=== PATIENT | female | born 2000 | race Native Hawaiian/Other Pacific Islander ===

== ENCOUNTER → 2025-02-04 13:55 | Outpatient (CLI) | payer OTHER, SELFPAY ==
--- NOTE | 2025-02-04 13:58 | DI.US.S_ITS ---
PROCEDURE: US OB LIMITED INDICATIONS: GROWTH/DATING VERIFICATION. ?ANATOMY OUTSIDE/PRIOR DATING DATA: The calculations are made using the DAVIDA of 07/11/2025. TECHNIQUE: Real-time scanning was performed of the fetus, with image documentation and biometric measurements. Endovaginal scanning: Not performed COMPARISON: None. FINDINGS: General: A single living intrauterine gestation is present. Presentation: Variable. Placenta: Placental position is anterior , without previa. Amniotic fluid index: 11.4 cm, normal range is 5-24 cm. Single deepest vertical pocket is 4.0 cm. heart rate: 152 beats per minute. Maternal cervical canal: 5.3 cm long. Normal lower limit is 2.5 cm. biometrics: Biparietal diameter: 4.2 cm, 18 weeks 4 days Head circumference: 15.4 cm, 18 weeks 3 days Abdominal circumference: 13.4 cm, 18 weeks 6 days Femur length: 2.5 cm, 17 weeks 4 days Clinically estimated gestational age: 17 weeks 4 days Composite gestational age from present scan: 18 weeks 3 days Estimated weight and percentile: 232 g, 86 percentile Other: Anatomy not performed due to early gestational age. Incidental note of right choroid plexus cyst measuring 6 mm. . IMPRESSION: 1. Single live intrauterine consistent with 18 weeks and 3 days. 2. Estimated weight is in the 86th percentile. 3. Anatomy not performed due to early gestational age. Incidental note of right choroid plexus cyst measuring 6 mm. Recommend follow-up ultrasound at 20 weeks gestational age with complete anatomy scan. We strive to produce accurate, complete, and clear reports of imaging services. To assist us in improving patient care, this report was composed using standard report templates and voice recognition software. Therefore, it may contain abnormal punctuation, insertions and/or omissions. Occasional wrong-word or sound-alike substitutions may occur. Though we review the report and make efforts to correct it, we do recommend that the report be read carefully in proper context to recognize any text inaccuracies. Dictated by: eDmario Shane M.D. on 02/04/2025 at 18:11 Approved by: Demario Shane M.D. on 02/04/2025 at 18:14
[2025-02-04 15:56] LABS: Add Manual Diff / Slide Review NO; Basophils Absolute Auto 100 /uL (0-100); Basophils Percent Auto 0.4 % (0-2); Eosinophils Absolute Auto 200 /uL (0-450); Eosinophils Percent Auto 1.5 % (2-4); Hematocrit 42.1 % (36-46); Hemoglobin 13.9 g/dL (12.0-16.0); Lymphocytes Absolute Auto 3100 /uL (1100-4500); Lymphocytes Percent Auto 20.9 % (25-40); Mean Corpuscular Hemoglobin 29.1 PG (26-34); Mean Corpuscular Volume 88.2 fL (80-100); Monocytes Absolute Auto 1000 /uL (0-900); Monocytes Percent Auto 6.4 % (3-14); Neutrophils Absolute Auto 10500 /uL (1500-7000); Neutrophils Percent Auto 70.8 % (50-75); Platelet Count 313 X10^3/uL (150-400); Red Blood Cell Count 4.78 X10^6/uL (4.0-5.2); Red Cell Distribution Width 13.3 % (11.6-14.8); White Blood Cell Count 14.9 X10^3/uL (4.5-11.0)
[2025-02-04 16:02] LABS: Hemoglobin A1C% w Est Avg Glu 5.3 % (4.0-6.0)
[2025-02-04 16:09] LABS: Natera Collection Specimen Collected
[2025-02-04 16:17] LABS: Alanine Aminotransferase 17 IU/L (<35); Albumin 4.2 g/dL (3.5-5.0); Albumin Globulin Ratio 1.2 (1.0-2.8); Alkaline Phosphatase 66 U/L (38-126); Aspartate Aminotransferase 23 IU/L (14-36); BUN Creatinine Ratio 9.8 (6-22); Bilirubin Total 0.3 mg/dL (0.2-1.3); Blood Urea Nitrogen 5 mg/dL (7-17); Calcium 9.2 mg/dL (8.4-10.2); Carbon Dioxide 20 mmol/L (22-32); Chloride 108 mmol/L (98-107); Estimated Glomerular Filt Rate > 60 mL/min (>60); Globulin 3.5 g/dL (1.7-4.1); Glucose 95 mg/dL (70-99); HEMOLYSIS < 15 (0-50); Potassium 3.9 mmol/L (3.4-5.1); Sodium 137 mmol/L (137-145); Total Protein 7.7 g/dL (6.3-8.2)
[2025-02-04 16:50] LABS: Hepatitis B Surface Antigen NEGATIVE s/c (NEGATIVE); Rubella Antibody IgG 2.6 IU/mL (>15)
[2025-02-04 17:06] LABS: HIV 1 & 2 Ab/Ag 4th Gen Combo NEGATIVE (NEGATIVE); Hep C Virus Ab w/Reflex Quant NEGATIVE s/c (NEGATIVE)
[2025-02-04 18:02] LABS: Creatinine Urine Random 79.88 mg/dL; Protein (Total) Urine Random < 5 mg/dL (0-12); Protein Creatinine Ratio Urine 0.06 GRAM/24H
[2025-02-04 19:21] LABS: Urine N gonorrhoeae NOT DETECTED
[2025-02-04 19:22] LABS: Urine Chlamydia NOT DETECTED
[2025-02-06 05:09] LABS: RPR Screen Non Reactive (Non Reactive)
[2025-02-06 05:42] LABS: Varicella IgG Antibody Reactive (Non Reactive)
== END ==
PROVIDERS: Referring Provider Obstetrics & Gynecology; Visit Provider Obstetrics & Gynecology
DX: O99.212 Obesity complicating pregnancy, second trimester (principal); Z3A.18 18 weeks gestation of pregnancy
CPT/HCPCS: 36415; 76815; 80053; 80055; 82570; 83036; 84156; 86787; 86803; 86850; 86900; 86901; 87086; 87389; 87491; 87591

== ENCOUNTER → 2025-02-26 07:58 | Outpatient (CLI) | payer OTHER, SELFPAY ==
--- NOTE | 2025-02-26 07:59 | DI.US.S_ITS ---
PROCEDURE: US OB >= 14 WEEKS FETUS INDICATIONS: 20 wk anatomy OUTSIDE/PRIOR DATING DATA: Working DAVIDA is 07/11/2025 TECHNIQUE: Real-time scanning was performed of the fetus, with image documentation and biometric measurements. Endovaginal scanning: No COMPARISON: [facility], , OB LIMITED, 02/04/2025, 16:29. FINDINGS: General: A single living intrauterine gestation is present. Presentation: Vertex. Placenta: Placental position is anterior , without previa. Amniotic fluid index: 15.1 cm, normal range is 5-24 cm. Single deepest vertical pocket is 5.2 cm. heart rate: 163 beats per minute. Maternal cervical canal: 3.6 cm long. Normal lower limit is 2.5 cm. biometrics: Biparietal diameter: 5.2 cm, 21 weeks and 6 days Head circumference: 19.1 cm, 21 weeks and 2 days Abdominal circumference: 17.6 cm, 22 weeks and 3 days Femur length: 3.3 cm, 20 weeks and 3 days Clinically estimated gestational age: 20 weeks and 5 days Composite gestational age from present scan: 21 weeks and 4 days Estimated weight and percentile: 4 in 32 g, 87% Anatomic survey: Neuro: Ventricles are non-dilated at less than 10 mm. Cisterna magna is normal at 3-11 mm. Cerebellum is normal in size and morphology. No choroid plexus cyst seen today. Nuchal skin fold: Normal at less than 6 mm between 14-21 weeks gestational age. Face: Nose and lips, facial profile are normal. Spine: No evidence for spina bifida. Heart: 4-chambered heart is present. LVOT seen. RVOT not well seen Diaphragm: Diaphragm is intact. Stomach: Left-sided stomach is present. Echogenic focus is seen. Kidneys: No hydronephrosis. Normal is less than 5 mm in 2nd trimester, less than 7 mm in 3rd trimester. Cord: 3-vessel cord has orthotopic insertion. Bladder: Normal in size. Extremities: All 4 extremities identified. IMPRESSION: Living intrauterine gestation in vertex presentation. EFW at the 87 percentile, upper limit of normal. Normal ANA. Incidentally noted echogenic focus in the stomach, nonspecific and of questionable significance in the absence of other significant abnormalities. RVOT was not well seen. No choroid plexus cysts seen today. Consider short interval follow-up. Dictated by: Zaki Cox M.D. on 02/26/2025 at 15:49 Approved by: Zaki Cox M.D. on 02/26/2025 at 15:53
[2025-02-26 12:36] LABS: GTT (PREG) 1 Hour PP 50gm Dose 154 mg/dL (76-139)
[2025-02-28 19:36] LABS: AFP Value 52.1 ng/mL (.); Gest Age on Col Date 20.7 weeks (.); Gestational Age Ultrasound (.); Insulin Dep Diabetes No (.); OSBR Risk 1IN 9540 (.); Results Report (.); Test Results *Screen Negative* (.)
== END ==
PROVIDERS: Referring Provider Obstetrics & Gynecology; Visit Provider Obstetrics & Gynecology
DX: Z34.02 Encounter for supervision of normal first pregnancy, second trimester (principal); Z3A.20 20 weeks gestation of pregnancy
CPT/HCPCS: 36415; 76811; 82105; 82950

== ENCOUNTER → 2025-04-10 09:03 | Outpatient (CLI) | payer OTHER, SELFPAY ==
[2025-04-10 10:12] LABS: Glucose Fasting Gestational 105 mg/dL (76-95)
[2025-04-10 11:38] LABS: Glucose 1 Hour Gest 226 mg/dL (76-180)
[2025-04-10 12:09] LABS: Glucose 2 Hour Gest 173 mg/dL (76-155)
[2025-04-10 12:20] LABS: Glucose Tol Interp,Gestational INTERPRETATION
[2025-04-10 13:32] LABS: Glucose 3 Hour Gest 168 mg/dL (76-140)
== END ==
PROVIDERS: Referring Provider Obstetrics & Gynecology; Visit Provider Obstetrics & Gynecology
DX: R73.09 Other abnormal glucose (principal)
CPT/HCPCS: 36415; 82951; 82952

== ENCOUNTER → 2025-04-23 12:18 | Outpatient (CLI) | payer OTHER, SELFPAY ==
--- NOTE | 2025-04-23 12:28 | DIAB.GDA ---
Addendum entered by Ginny Mcgowan 05/02/25 17:46: 05/02/25: No message from pt on update on FBG. Called and left a vm to send over BG results at her earliest convenience. 1:1 follow-up in 6 days is scheduled. Addendum entered by Ginny Mcgowan 04/29/25 15:36: Rescheduled for next week follow-up as well Addendum entered by Ginny Mcgowan 04/29/25 15:36: 04/29/25: called pt due to no-show. Had transportation barrier. Started checking BG. No consistent FBG checks but one elevation of 97mg/dl FBG. Other 1 hour pc readings range from 120-140mg/dl. Checking some pre lunch and pre dinner readings. Encouraged checking 4x per day: FBG and 1 hour pc. Asked her to send her BG results on Monday for review. Original Note: Initial Gestational Diabetes Assessment Name: Thuy Morris Date: 04/23/25 Time: 1220-1p Dx: Gestational Diabetes Provider: Salome DAVIDA: 07/11/2025 Weeks: 28 Arturo presents for initial GDM visit. Pt rescheduled our visit from last week to today. Not yet checking BG, does not have supplies. RD messaged OB workgroup regarding supplies. Endorses FH of DM with parents and sister. High CHO intake with carb portions and sugar beverage. Limited eating frequency. Diet Recall: wake 7-8a usually skips breakfast or instant noodles, sweetened tea (green tea matcha with foam) 12a-1p: 80g CHO noodles with egg sn: nothing or shrimp crackers with 1c rice 8-9p: grilled or fried fish with taro 60g CHO 12a: nothing or noodles water: 16.9 x 4-5 soda 6oz x 1-2 per day Anthropometrics: Ht: 4'11 Wt: 237# 04/11/25 Prepregnancy wt: 205# Physical Activity: Park with nephew 3-7 days per week Self-Monitoring Blood Glucose: None. No supplies. Date Pre Post Pre Post Pre Post HS Diabetes Medications: none Pertinent Labs: Screen: 154 OGTT: 105, 226, 173, 168 Nutrition Rx: Carbohydrates: Meal: 45-g lunch and dinner; 30g breakfast Snack: 15-30g Nutrition Diagnosis: Altered nutrition related lab value r/t GDM dx aeb recent OGTT Excessive CHO intake r/t nutrition knowledge deficit aeb diet recall Intervention: This participant was very receptive. Provided appropriate educational handouts. Discussed the following topics: GDM pathophysiology and impact of hyperglycemia on mom and baby Risk for T2DM for mom and baby in the future Ways to reduce risk T2DM Plate Method, meal timing, carb counting, pairing macronutrients and spreading out CHO for better BG management Blood glucose goals (FBG: <95 and 1 hour <140 mg/dL); importance of checking 4x per day (FBG and pc) Impact of macronutrients on blood glucose Recommended servings for carbohydrates at meals and snacks Brainstormed appropriate meal plan based on her food preferences Role of physical activity and following provider guidelines for safety Goals: Avoid sugar beverages Eat q 3-5 hours Keep carbs to 1c at meals Start BG checks 4x/day Follow-up: DESTINY CM follow-up in one week Ginny Mcgowan RDN, [facility] Certified Diabetes Care and Construction Administrator T: [phone] F: [phone] [email or web address] Thank you for this referral
== END ==
LOC: DIET 12:19
PROVIDERS: Referring Provider Student in an Organized Health Care Education/Training Program
DX: O24.419 Gestational diabetes mellitus in pregnancy, unspecified control (principal); Z3A.28 28 weeks gestation of pregnancy; Z71.3 Dietary counseling and surveillance
CPT/HCPCS: 97802

== ENCOUNTER → 2025-06-04 10:07 | Outpatient (CLI) | payer OTHER, SELFPAY ==
--- NOTE | 2025-06-04 12:38 | DIAB.GDFU ---
Addendum entered by Ginny Mcgowan 06/06/25 15:07: 06/06/25: called patient but phone would not connect-- busy signal. We have an appt scheduled for Monday when RD is back in office. Original Note: Follow-up Gestational Diabetes Assessment Name: Thuy Morris Date: 06/04/25 Time: 1015-1040a Dx: Gestational Diabetes Provider: Everardo/Cuate/Osiris DAVIDA: 07/11/2025 Weeks: 34 Arturo presents for follow-up GDM visit. Reports she is moving to [place] next week. States she does not currently have a OB or D[place] management team [place]. Did not bring BG log for review but endorses elevations, with FBG in the 120s and pc readings 150s. Would likely benefit from insulin therapy. Did not check BG last week due to being in [place] with FOB. Has restarted checks and noticed elevations. Open to CGM, but needs metal reclamation kettle tender instead of phone connection. Needs SMBG test strips sent to different pharmacy for better coverage. RD coordinated with OB office on supplies, recent BG, potential for insulin, and CGM rx. Endorses drinking more soda lately. Anthropometrics: Ht: 4'11 Wt: 238# 06/2025 239# 05/2025 237# 04/11/25 Prepregnancy wt: 205# Physical Activity: Park with nephew 3-7 days per week Self-Monitoring Blood Glucose: Checking BG but did not bring results today. Endorses FBG in the 120s and pc of 150s Date Pre Post Pre Post Pre Post HS Diabetes Medications: none Pertinent Labs: Screen: 154 OGTT: 105, 226, 173, 168 Intervention: This participant was very receptive. Provided appropriate educational handouts. Discussed the following topics: CGM sample placement, education, precautions, and benefits Insulin recs and return demonstration Review of BG goals and tx of lows prn Impact sugar beverages on BG Goals: D/c banana in oats and choose berries- met Add protein consistently to lunch- met Choose small coffee option- d/c Add veggies to dinner- improved Message RD with BG results- not met Wear CGM -new customer support manager insulin prn- new Avoid sugar beverages- new Follow-up: DESTINY CM follow-up in 2 days via phone and next week 1:1 prior to her move. Ginny Mcgowan RDN, [facility] Certified Diabetes Care and Supervisor Production Department T: [phone] F: [phone] [email or web address] Thank you for this referral
== END ==
DX: O24.419 Gestational diabetes mellitus in pregnancy, unspecified control (principal); Z3A.34 34 weeks gestation of pregnancy; Z71.3 Dietary counseling and surveillance
CPT/HCPCS: G0108

== ENCOUNTER → 2025-06-10 09:12 | Outpatient (CLI) | payer OTHER, SELFPAY ==
--- NOTE | 2025-06-10 09:16 | DIAB.GDFU ---
Follow-up Gestational Diabetes Assessment Name: Thuy Morris Date: 06/10/25 Time: [id number] Dx: Gestational Diabetes Provider: Noah DAVIDA: 07/11/2025 Weeks: 35 Arturo presents for follow-up GDM visit. Plans to move to [place] this Monday. Has OB visit tomorrow. Has not started insulin therapy yet, but does have rx. States pharmacy had delays with filling rx, but it is now available. Does not have CGM rx. RD sent workgroup message for Dexcom G7 rx. Needs a review of Rule of 15. BG still running high. Has questions about potential for and rationale. States she is moving to [place] to live with FOB. States her family lives here in [place]. Sister is 19 y/o but may go to [place] to help her some . Has cut out sweetened beverages per report. Anthropometrics: Ht: Wt: 238# 06/2025 239# 05/2025 237# 04/11/25 Prepregnancy wt: 205# Physical Activity: Park with nephew 3-7 days per week Self-Monitoring Blood Glucose: FBG running 90-115mg/dl and pc readings 135-215mg/dl. TIR: 0% very high 26% above 140mg/dl 74% in range 0% low <1% very low --- r/t compression low reported avmg/dl std dev: 28mg/dl variance: 22.7% Diabetes Medications: none Pertinent Labs: Screen: 154 OGTT: 105, 226, 173, 168 Intervention: This participant was very receptive. Provided appropriate educational handouts. Discussed the following topics: Review of type of insulin, dosing, and when to take Review of rxs and encouraged machine operator picker of insulins and CGM Rule of 15 tx for lows prn Support Review of percentile for growth at last US, rationale for potential c section with macrosomia, and encouraged further discussion with OB Goals: Wear CGM -met district plant supervisor insulin prn- not met Avoid sugar beverages- met district plant supervisor NPH and Lispro- new district plant supervisor CGM supplies- new Follow Rule of 15 prn for lows- new Follow-up: RDManny CDCES follow-up in 2 days. OB visit tomorrow. RD has messaged OB update on BG and messaged OB workgroup regarding rxs and preferred pharmacy. Ginny Mcgowan RDN, [facility] Certified Diabetes Care and Can Operator T: [phone] F: [phone] [email or web address] Thank you for this referral
== END ==
LOC: DIET 09:12
PROVIDERS: Referring Provider Obstetrics & Gynecology
DX: O24.419 Gestational diabetes mellitus in pregnancy, unspecified control (principal); Z3A.35 35 weeks gestation of pregnancy; Z71.3 Dietary counseling and surveillance
CPT/HCPCS: G0108

== ENCOUNTER 2025-06-11 15:31 | Outpatient (CLI) | payer OTHER, SELFPAY | END 2025-06-11 16:34 | disposition home or self-care (01) | LOC: OB 06-12 07:35 | PROVIDERS: Referring Provider Obstetrics & Gynecology; Visit Provider Obstetrics & Gynecology | DX: O24.419 Gestational diabetes mellitus in pregnancy, unspecified control (principal); O99.213 Obesity complicating pregnancy, third trimester; E66.9 Obesity, unspecified; O99.891 Other specified diseases and conditions complicating pregnancy; R80.9 Proteinuria, unspecified; R82.998 Other abnormal findings in urine; Z3A.35 35 weeks gestation of pregnancy | CPT/HCPCS: 59025; 87086; 87653; G0378; G0379 ==

== ENCOUNTER → 2025-06-11 15:46 | Outpatient (CLI) | payer OTHER, SELFPAY ==
[2025-06-12 14:58] LABS: Strep Grp B PCR NEG for Grp B Strep
== END ==
PROVIDERS: Visit Provider Obstetrics & Gynecology
DX: Z34.03 Encounter for supervision of normal first pregnancy, third trimester (principal); R80.9 Proteinuria, unspecified; R82.998 Other abnormal findings in urine
CPT/HCPCS: 87086; 87653